=== PATIENT | female | born 1945 | race Two or more races ===

== ENCOUNTER 2024-01-14 19:16 | Emergency (ER) | payer SELFPAY ==
[2024-01-14 19:19] VITALS: BP 94/43
[2024-01-14 19:37] LABS: Hematocrit 34.1 % (37.0-47.0); Hemoglobin 11.5 g/dL (12.0-16.0); Mean Corp Hgb Conc. 33.7 g/dL (33.0-37.0); Mean Corpuscular Volume 83.2 fL (81.0-99.0); Mean Platelet Volume 9.6 fL (7.4-10.4); Platelet Count 276 10^3/uL (130-400); Red Cell Dist. Width 14.6 % (11.5-14.5); White Blood Cell Count 6.6 10^3/uL (4.8-10.8)
[2024-01-14 19:55] LABS: ALT (SGPT) 21 U/L (0-35); AST (SGOT) 25 U/L (14-36); Alkaline Phosphatase 142 U/L (38-126); Blood Urea Nitrogen 38 mg/dl (7-17); Calcium 8.2 mg/dl (8.4-10.2); Carbon Dioxide 27 mmol/L (22-30); Chloride 97 mmol/L (98-107); Glucose 113 mg/dl (70-99); Potassium 3.7 mmol/L (3.5-5.1); Sodium 133 mmol/L (135-145); Total Bilirubin 0.8 mg/dl (0.2-1.3); Total Protein 5.3 g/dl (6.3-8.2); eGFR 57.31
[2024-01-14 19:57] LABS: NT-proBNP 4190 pg/ml; Troponin I < 0.012 ng/ml
[2024-01-14 19:58] LABS: % Basophils 0.3 % (0-2); % Eosinophils 1.8 % (0-6); % Immature Granulocytes 8.8 % (0-0.5); % Monocytes 5.6 % (1.7-9.3); % Neutrophils 73.5 % (42.2-75.2); Absolute Eosinophils 0.1 10^3/uL (0-0.7); Absolute Immature Granulocytes 0.6 10^3/uL (0-0.05); Absolute Lymphocytes 0.7 10^3/uL (1.2-3.4); Absolute Monocytes 0.4 10^3/uL (0.1-0.6); Absolute Neutrophils 4.9 10^3/uL (1.4-6.5); Nucleated Red Blood Cells % 0 %
[2024-01-14 21:41] VITALS: BP 101/44
[2024-01-14 22:00] VITALS: BP 93/56
[2024-01-14 22:38] VITALS: BP 96/46
--- NOTE | 2024-01-14 22:58 | ED.GENMED ---
History of Present Illness
General
Chief Complaint: Swelling
Source: patient and other (Nursing staff)
Exam Limitations: dementia (able to answer some questions)
Time Seen by Provider: 01/14/24 21:56
History of Present Illness
History of Present Illness:
This is a 78 year old female that is brought in by ambulance form [facility] for bilateral leg swelling. Told that the patient has a history of CHF. Patient states that she doesn't know why she is here as she has no complaints. Denies
any fever, chills, chest pain, SOB, abd pain, nausea, vomiting, diarrhea, headache, dizziness, urinary burning.
Past History
Past History
ED Past Medical History: Arrthythmia (Atrial fib), CHF, COPD, Hypothyroidism and Other (Sleep apnea, Spotted fever Tick borne disease)
ED Past Surgical History: Cardiac (Pacemaker)
Social History
Tobacco: Former smoker
Alcohol: Former
Drug: None
Personal:
Living: custodial
Review of Systems
Review of Systems
Unable to obtain full review of systems at this time due to: dementia (Slight but able to answer questions about herself)
All Other Systems: ROS reviewed and negative except as documented in HPI and ROS
Constitutional: Reports no symptoms; Denies fever or chills
EENT: Reports no symptoms
Respiratory: Reports no symptoms; Denies cough or trouble breathing
Cardiac: Reports no symptoms; Denies chest pain
ABD/GI: Reports no symptoms; Denies abdominal pain, nausea, vomiting or diarrhea
: Reports no symptoms; Denies dysuria, frequency or urgency
Musculoskeletal: Reports no symptoms
Skin: Reports no symptoms
Neurological: Reports no symptoms; Denies dizzy or headache
Psychiatric: Reports no symptoms
Phy Exam
General Physical Exam
General Presentation: no apparent distress
General age: appears stated age
General Skin: warm and dry
General Habitus: debilitated and elderly
General Mental: usual mental status
General Hydration: appears well hydrated
ENT Exam
ENT Exam: TM's normal, pharynx normal and other
Eye Exam
Eye Exam: EOMI
Cardiovascular Exam
Cardiovascular Exam: regular rate/rhythm and normal peripheral pulses
Pulmonary Exam
Pulmonary Exam: no respiratory distress, no rales, chest non tender, no crackles, no rhonchi, no cough and other (Exp wheezing faint noted)
Gastrointestinal Exam
Gastrointestinal Exam: normal bowel sounds, non tender, soft, no organomegaly, no pulsatile mass and non distended
Musculoskeletal Exam
Musculoskeletal Exam: edema (Slight of the lower legs nonpitting)
Skin Exam
Skin Exam: normal color, warm/dry and no petechia
Psychiatric Exam
Psychiatric Exam: normal mood/affect
Scores
Heart Failure Risk
Heart Failure Risk Score: Yes
History of Stroke or TIA: No
History of intubation for respiratory distress: No
Heart rate on ED arrival >/= 110: No
SaO2 <90% on arrival on room air: No
HR >/=110 during 3min walk test (or too ill to perform test): No
ECG has acute ischemic changes: No
Urea >/=12mmol/L (BUN 33.6mg/dL): Yes
Serum CO2>/=35mmol/L: No
Troponin I or T elevated to NE Level (0.4mg/dL): No
NT-proBNP >/=5,000ng/L (5,000pg/ml): No
HF Risk Score: 1
Admission Status: MEDIUM RISK 5.1% Consider observation or discharge to home with homecare & f/u visit to PCP/Campus Manager, or SNF for treatment
Course
Orders/Labs/Results
Orders:
Orders
01/14/24 19:17
Electrocardiogram (*1) Urgent
Reason for Study: Chest Pain
EKG- Treatment ONCE
01/14/24 19:23
BNP [NT-proBNP] Urgent
Complete Blood Count/With Diff Urgent
Comprehensive Metabolic Panel Urgent
Troponin I Urgent
01/14/24 21:59
CR Chest - 2 Views Urgent
Comment: history of CHF
Reason For Exam: Lower leg edema. elevated Pro-BNP,
01/14/24 23:02
Straight cath- Treatment ONCE
01/14/24 23:54
Urinalysis Reflex To Culture Urgent
Date Specimen was Collected: 01/14/24
Time Specimen was Collected: 23:48
Urine Microscopic Reflex Cult Urgent
Abnormal Lab Results
01/14/24 01/14/24
19:23 23:54
RBC 4.10 L 10^6/uL
(4.20-5.40)
Hgb 11.5 L g/dL
(12.0-16.0)
Hct 34.1 L %
(37.0-47.0)
RDW 14.6 H %
(11.5-14.5)
Abs Immat Gran (auto) 0.6 H 10^3/uL
(0-0.05)
Absolute Lymphs (auto) 0.7 L 10^3/uL
(1.2-3.4)
Immature Gran % 8.8 H %
(0-0.5)
Lymphocytes % 10.0 L %
(20.5-51.1)
Sodium 133 L mmol/L
(135-145)
Chloride 97 L mmol/L
(98-107)
BUN 38 H mg/dl
(7-17)
Glucose 113 H mg/dl
(70-99)
Calcium 8.2 L mg/dl
(8.4-10.2)
Alkaline Phosphatase 142 H U/L
(38-126)
Total Protein 5.3 L g/dl
(6.3-8.2)
Albumin 3.0 L g/dl
(3.5-5.0)
Ur Occult Blood Reflex 4+ A
(Negative)
Leukocyte Esterase Rfl Trace A
(Negative)
Urine RBC 16-20 A /HPF
(0-2)
Urine Bacteria (Reflex) Few A
(Negative)
01/14/24 19:23
01/14/24 19:23
H/H slightly low, Sodium slightly low. Dehydration. Glucose nonfasting. Calcium slightly low. Alk phos elevated. Total protein low, albumin low. Troponin <0.012, Pro-BNP 4190, Urine negative for infection
Vital Signs
Initial and Last Documented VS:
Initial Vital Signs
Temp Pulse Resp BP Pulse Ox
97.9 F 86 20 94/43 97
01/14/24 19:19 01/14/24 19:19 01/14/24 19:19 01/14/24 19:19 01/14/24 19:19
Last Documented Vital Signs
Temp Pulse Resp BP Pulse Ox
98 F 86 20 86/47 94
01/14/24 23:55 01/14/24 19:19 01/14/24 19:19 01/15/24 01:00 01/15/24 00:44
MDM/Problems Addressed
Differential Diagnosis Includes:
CHF, Dependent edema.
MDM/Problems Addressed:
This is a 78 year old female that is brought in by ambulance with c/o leg swelling. Patient has no complaints.
Blood work shows that patient is dehydrated by her PRo-BNP is elevated There are no labs to compare this will and her chest x-ray is normal. There is no pitting edema of the lower legs. This is most likely dependent edema. Patient is not hypoxic.
Will discharge back to the custodial.
Chronic conditions affecting care:
CHF
Acute Exacerbation and/or Progression of Chronic Illness:
NA
*Radiology
Radiology exam reviewed: radiology read reviewed (Chest-NO acute cardiopulmonary process)
*Pulse Oximetry
Patient hypoxic: no
*EKG
Interpreted by ED Provider?: Yes
Heart Rate: 85
Rate: normal
Rhythm: a-fib
[place]: normal axis
QRS Pattern: normal QRS
Ischemia: T-wave inversion (V5, V6)
*Technology Specialist Interpretation
Rate: Technology Specialist- N/A
*Critical Care Note
Total Time (30-74mins, 75-104mins- exclusive of procedures): Not Applicable
ED Attending Note
-
Portions of this chart may have been created with voice recognition software.� Occasional wrong word or��sound alike� substitutions may have occurred due to the inherent limitations of voice recognition software.
Discharge Plan
Departure
Patient Disposition: Assisted/SNF
Date of Disposition: 01/15/24
Time of Disposition: 01:48
Patient with high blood pressure during this ER visit?: No
Condition: Good
Covid-19: Not Applicable
Discharge Problem:
Dependent edema
Instructions: Dependent Edema (DC)
Referrals:
Yanni Yusuf CRNP [Family Provider] - Follow up in 2-3 days
Activity Restrictions/Additional Instructions:
As discussed, patient blood work shows that she is dehydrated. Her Pro-BNP is elevated but there is no pitting edema. This is most likely dependent edema. Chest x-ray is negative for any acute process. Urine is negative for infection. Please have
patient follow up with the family doctor in the next 2-3 days for recheck. . Elevate patient leg when sitting around. You may also try compression stockings to help with any edema. IF PATIENT HAS CHEST PAIN, SHORTNESS OF BREATH, OR YOU HAVE ANY
OTHER CONCERNS PLEASE RETURN TO THE EMERGENCY ROOM.
Interventions
Interventions:
*Risk Screen - Suicide Last Done: 01/14/24 19:19
ED- Cardiac Assessment Last Done: 01/14/24 23:31
ED- Pulmonary Assessment Last Done: 01/14/24 23:31
ED-Skin Assessment Last Done: 01/14/24 23:31
Discharge Date and Time
Print Language: CHILEAN
[2024-01-14 23:00] VITALS: BP 90/55
[2024-01-14 23:48] VITALS: BMI 28.9
[2024-01-15] VITALS: BP 91/45
[2024-01-15 00:12] LABS: Urine Albumin Trace (Neg - Trace); Urine Bilirubin Negative (Negative); Urine Character Clear (Clear); Urine Color Yellow; Urine Glucose Negative (Negative); Urine Ketone Negative (Negative); Urine Leukocyte Trace (Negative); Urine Nitrite Negative (Negative); Urine Occult Blood 4+ (Negative); Urine Urobilinogen Negative (Neg - 1+)
[2024-01-15 00:37] LABS: Urine Red Blood Cell 16-20 /HPF (0-2)
[2024-01-15 00:38] LABS: Urine Bacteria Few (Negative)
[2024-01-15 01:00] VITALS: BP 86/47
[2024-01-15 02:00] VITALS: BP 93/52
[2024-01-15 04:00] VITALS: BP 95/51
[2024-01-15 05:00] VITALS: BP 90/54
[2024-01-15 05:23] VITALS: BP 93/51
== END 2024-01-15 05:24 ==
LOC: EMR 19:16
PROVIDERS: Clinical Nurse Specialist Family Health; Emergency Medicine; EMERGENCY PHYSICIAN Emergency Medicine; FAMILY PHYSICIAN Nurse Practitioner
DX: R60.0 Localized edema (principal); E86.0 Dehydration; I50.9 Heart failure, unspecified; I48.91 Unspecified atrial fibrillation; E03.9 Hypothyroidism, unspecified; F03.90 Unspecified dementia, unspecified severity, without behavioral disturbance, psychotic disturbance, mood disturbance, and anxiety; J44.9 Chronic obstructive pulmonary disease, unspecified; G47.30 Sleep apnea, unspecified; Z95.0 Presence of cardiac pacemaker; Z87.891 Personal history of nicotine dependence
CPT/HCPCS: 99284; 51701; 71046; 80053; 81003; 81015; 83880; 84484; 85025; 93005